=== PATIENT | female | born 1970 | race Caucasian/White ===

== ENCOUNTER → 2018-02-28 | Outpatient (CLI) | payer OTHER ==
[~2018-02-28] MED LIST: FERR-1 PO; IBU800 PO; PER PO
[2018-02-28 10:52] LABS: PLATELET COUNT, AUTOMATED 469 K/uL (150-450)
== END ==
LOC: LAB 10:03
PROVIDERS: ATTEND Internal Medicine Rheumatology
DX: L40.59 Other psoriatic arthropathy (principal); Z79.899 Other long term (current) drug therapy
CPT/HCPCS: 36415; 82565; 84450; 85025; 85651

== ENCOUNTER → 2018-08-08 | Outpatient (CLI) | payer OTHER ==
[2018-08-08 09:16] LABS: PLATELET COUNT, AUTOMATED 494 K/uL (150-450)
== END ==
LOC: LAB 08:59
PROVIDERS: ATTEND Internal Medicine Rheumatology
DX: L40.59 Other psoriatic arthropathy (principal); Z79.899 Other long term (current) drug therapy
CPT/HCPCS: 36415; 82565; 84450; 85025; 85651